=== PATIENT | female | born 1985 | race Two or more races ===

== ENCOUNTER 2021-01-17 14:37 | Outpatient (CLI) | payer SELFPAY ==
[2021-01-17 14:45] VITALS: BP 109/70
[2021-01-17 19:25] LABS: BILIRUBIN NEGATIVE (NEGATIVE); KETONE 2+ mg/dL (< 1+); NITRITE NEGATIVE (NEGATIVE); PH 6.5 (5.0-8.0); UROBILINOGEN NORMAL mg/dL (< 2)
== END 2021-01-17 20:47 | disposition home or self-care (01) ==
LOC: D.LDO 14:37
PROVIDERS: ATTEND Obstetrics & Gynecology
DX: O24.419 Gestational diabetes mellitus in pregnancy, unspecified control (principal); Z79.84 Long term (current) use of oral hypoglycemic drugs; Z3A.33 33 weeks gestation of pregnancy

== ENCOUNTER 2021-01-20 14:43 | Outpatient (CLI) | payer SELFPAY | END 2021-01-20 15:44 | disposition home or self-care (01) | LOC: D.LDO 14:43 | PROVIDERS: ATTEND Obstetrics & Gynecology | DX: O24.419 Gestational diabetes mellitus in pregnancy, unspecified control (principal); Z3A.34 34 weeks gestation of pregnancy ==

== ENCOUNTER 2021-01-24 13:53 | Outpatient (CLI) | payer SELFPAY ==
[2021-01-24 14:00] VITALS: BP 121/69
== END 2021-01-24 18:10 | disposition home or self-care (01) ==
LOC: D.LDO 13:53
PROVIDERS: ATTEND Obstetrics & Gynecology
DX: O24.419 Gestational diabetes mellitus in pregnancy, unspecified control (principal)

== ENCOUNTER 2021-01-26 16:33 | Outpatient (CLI) | payer SELFPAY | END 2021-01-26 17:27 | disposition home or self-care (01) | LOC: D.LDO 16:33 | PROVIDERS: ATTEND Obstetrics & Gynecology | DX: O36.8190 Decreased fetal movements, unspecified trimester, not applicable or unspecified (principal); O24.419 Gestational diabetes mellitus in pregnancy, unspecified control ==